=== PATIENT | male | born 1950 | race African-American/Black ===

== ENCOUNTER 2019-06-20 09:44 | Inpatient (IN) ==
[2019-06-20] MEDS ORDERED: NALOXONE 0.4 MG/ML VIAL ONE (09:52)
[2019-06-20] MEDS ORDERED: AMMONIA INHALANT 1 EACH AMP INH ONE (09:53)
[2019-06-20] MEDS ORDERED: THIAMINE 200 MG/2 ML VIAL IV STA (09:57)
[2019-06-20] MEDS ORDERED: NALOXONE 0.4 MG/ML VIAL IV STA (09:57)
[2019-06-20 10:25] LABS: Basophils % 0.3 % (0.0-0.8); Hematocrit 41.5 VOL% (42.0-52.0); Hemoglobin 12.6 GM/DL (14.0-18.0); Immature Granulocytes % 0.4 %; Immature Granulocytes Absolute 0.05 #; Lymphocytes # 0.7 10*3/uL (1.4-4.0); Lymphocytes % 5.8 % (21.2-54.2); Mean Corpuscular HGB Conc 30.4 GM/DL (32-36); Mean Corpuscular Volume 84.5 FL (87-102); Mean Platelet Volume 11.4 FL (9.6-12.0); Monocytes % 7.3 % (1.7-12.7); Neutrophils % 86.2 % (38.7-73.9); Platelet Count 263 T/CUMM (130-400); Red Blood Count 4.91 MC/CUMM (3.8-5.5); Red Cell Distribution Width 20.8 % (9.3-17.3); White Blood Count 11.9 T/CUMM (4-12)
[2019-06-20 10:32] LABS: INR 0.9; PT Patient Result 10.2 SECS
[2019-06-20 10:32] LABS: Apearance,Urine CLEAR (Clear); Bacteria,Urine Occasional /HPF (Few); Bilirubin,Urine Negative (Negative); Blood, Urine Negative (Negative); Calcium Oxalate Crystals,Urine Occasional /HPF (Few); Glucose,Urine (UA) Negative (Negative); Hyaline Casts,Urine 13 /LPF (0-3); Ketones,Urine 5 mg/dL (Negative); Nitrite,Urine Negative (Negative); Protein,Urine 100 MG/DL; RBC,Urine 1 /HPF (0-4); Urine Color Yellow (Yellow); Urine Specific Gravity 1.023 (1.001-1.035); Urine Urobilinogen < 2.0 EU/DL (0.2-1.0); WBC,Urine 2 /HPF (0-6)
[2019-06-20 10:32] LABS: ABG Base Excess -0.1 MMOL/L (-2.5-2.5); ABG HCO3 24.3 MMOL/L (20-26); ABG Oxygen Saturation 99.8 % (95-100); ABG PCO2 49.5 MM HG (35-48); ABG PH 7.335 (7.35-7.45); ABG TCO2 23.4 MMOL/L (23-27)
[2019-06-20 10:36] LABS: Barbiturates Screen,Urine Negative (Negative); Benzodiazepines Screen,Urine Negative (Negative); Cannabinoid Screen,Urine Negative (Negative); Opiate Screen,Urine Negative (Negative); Phencyclidine Screen,Urine Negative (Negative)
[2019-06-20 10:41] LABS: Alanine Aminotransferase 29 U/L (16-61); Albumin 4.5 G/DL (3.4-5.0); Alkaline Phosphatase 105 U/L (45-117); Aspartate Amino Transferase 22 U/L (0-37); Bilirubin,Total < 0.39 MG/DL (0.2-1.0); Blood Urea Nitrogen 26 MG/DL (7-18); Calcium 9.9 MG/DL (8.5-10.1); Glucose 100 MG/DL (74-106); Osmolality,Calculated 300.1 MOS/KG (273-304); Total Protein 7.7 G/DL (6.4-8.3)
[2019-06-20 10:50] LABS: Partial Thromboplastin Time < 21.0 SECS (0-40)
[2019-06-20] MEDS ORDERED: ETOMIDATE 20 MG/10 ML VIAL IV ONE (12:17)
[2019-06-20] MEDS ORDERED: ROCURONIUM 100 MG/10 ML VIAL IV ONE (12:18)
[2019-06-20] MEDS ORDERED: ALBUTEROL 2.5 MG/3 ML NEB RESP TX PRN (12:28)
[2019-06-20 12:58] LABS: ABG Base Excess 0.1 MMOL/L (-2.5-2.5); ABG HCO3 24.5 MMOL/L (20-26); ABG Oxygen Saturation 98.1 % (95-100); ABG PCO2 34.6 MM HG (35-48); ABG PH 7.443 (7.35-7.45); ABG PO2 98.3 MM HG (80-95); ABG TCO2 20.7 MMOL/L (23-27); Allen Test Positive; Pt O2 Delivery Device Ventilator
[2019-06-20] MEDS ORDERED: PNEUMOCOCCAL VACCINE (13 VALENT) 0.5 ML SYRINGE IM ONE (13:15)
[2019-06-20] MEDS ORDERED: LORazepam 2 MG/1 ML VIAL IV ONE (13:27)
[2019-06-20] MEDS ORDERED: DILTIAZEM 50 MG/10 ML VIAL IV ONE (13:31)
[2019-06-20] MEDS ORDERED: DILTIAZEM 25 MG/5 ML VIAL IV ONE (13:33)
[2019-06-20] MEDS ORDERED: PHENYTOIN INJ 1,000 MG in SODIUM CHLORIDE 0.9% 100 ML IV ONE (13:41)
[2019-06-20] MEDS: ALBUTEROL/IPRATROPIUM 3 ML NEB RESP TX SCH ×2 (13:45→19:17)
[2019-06-20] MEDS: SODIUM CHLORIDE 0.45% 1,000 ML IV SCH ×2 (13:58→20:41)
[2019-06-20] MEDS ORDERED: PHENYTOIN 100 MG/4 ML UDCUP PO SCH (14:00)
[2019-06-20 15:53] LABS: Thyroid Stimulating Hormone 1.2 uIU/ml (0.358-3.74)
[2019-06-20] MEDS: ENOXAPARIN 40 MG/0.4 ML SYRINGE SUBCUT SCH (16:36)
[2019-06-20] MEDS: PANTOPRAZOLE 40 MG VIAL IV SCH (16:36)
[2019-06-20] MEDS: LORazepam 2 MG/1 ML VIAL IV PRN (18:12)
[2019-06-20] MEDS: PROPOFOL 1,000 MG/100 ML BOTTLE IV SCH ×2 (18:19→22:50)
[2019-06-21] MEDS: ALBUTEROL/IPRATROPIUM 3 ML NEB RESP TX SCH ×4 (00:40→20:14)
[2019-06-21 01:16] LABS: Basophils % 0.3 % (0.0-0.8); Hematocrit 40.5 VOL% (42.0-52.0); Immature Granulocytes % 1.4 %; Immature Granulocytes Absolute 0.16 #; Lymphocytes # 0.9 10*3/uL (1.4-4.0); Lymphocytes % 7.4 % (21.2-54.2); Mean Corpuscular HGB Conc 29.6 GM/DL (32-36); Mean Corpuscular Volume 87.5 FL (87-102); Mean Platelet Volume 11.3 FL (9.6-12.0); Monocytes % 7.9 % (1.7-12.7); Platelet Count 242 T/CUMM (130-400); Red Blood Count 4.63 MC/CUMM (3.8-5.5); Red Cell Distribution Width 20.7 % (9.3-17.3); White Blood Count 11.5 T/CUMM (4-12)
[2019-06-21 01:47] LABS: Albumin 3.5 G/DL (3.4-5.0); Bilirubin,Total 0.6 MG/DL (0.2-1.0); Calcium 8.9 MG/DL (8.5-10.1); Osmolality,Calculated 298.4 MOS/KG (273-304); Risk Ratio 1.94; Total Protein 6.5 G/DL (6.4-8.3); VLDL CHOLESTEROL 12.6 MG/DL
[2019-06-21] MEDS: SODIUM CHLORIDE 0.45% 1,000 ML IV SCH ×4 (03:36→21:08)
[2019-06-21] MEDS: PROPOFOL 1,000 MG/100 ML BOTTLE IV SCH ×6 (03:36→21:29)
[2019-06-21 04:30] LABS: ABG Base Excess 1.4 MMOL/L (-2.5-2.5); ABG HCO3 25.7 MMOL/L (20-26); ABG Oxygen Saturation 98.5 % (95-100); ABG PCO2 37.3 MM HG (35-48); ABG TCO2 22.5 MMOL/L (23-27); Allen Test Positive; Pt O2 Delivery Device Ventilator
[2019-06-21] MEDS ORDERED: GLUCAGON 1 MG VIAL IM PRN (11:37)
[2019-06-21] MEDS ORDERED: DEXTROSE 50% 25 GM/50 ML VIAL IV PRN (11:37)
[2019-06-21] MEDS: ENOXAPARIN 40 MG/0.4 ML SYRINGE SUBCUT SCH (13:50)
[2019-06-21] MEDS: PANTOPRAZOLE 40 MG VIAL IV SCH (13:50)
[2019-06-22] MEDS: PROPOFOL 1,000 MG/100 ML BOTTLE IV SCH ×6 (01:18→20:39)
[2019-06-22] MEDS: ALBUTEROL/IPRATROPIUM 3 ML NEB RESP TX SCH ×4 (02:04→19:06)
[2019-06-22 03:59] LABS: ABG Base Excess 1.9 MMOL/L (-2.5-2.5); ABG HCO3 26.1 MMOL/L (20-26); ABG Oxygen Saturation 98.9 % (95-100); ABG PCO2 42.6 MM HG (35-48); ABG PH 7.407 (7.35-7.45); ABG TCO2 24.1 MMOL/L (23-27); Allen Test Positive; Pt O2 Delivery Device Ventilator
[2019-06-22 06:07] LABS: Albumin 2.7 G/DL (3.4-5.0); Bilirubin,Total 0.8 MG/DL (0.2-1.0); Calcium 8.6 MG/DL (8.5-10.1); Osmolality,Calculated 289.7 MOS/KG (273-304); Total Protein 6.1 G/DL (6.4-8.3)
[2019-06-22 06:16] LABS: Basophils % 0.3 % (0.0-0.8); Eosinophils # 0.1 10*3/uL (0.0-0.87); Eosinophils % 0.8 % (0.00-10.9); Hematocrit 35.4 VOL% (42.0-52.0); Hemoglobin 10.3 GM/DL (14.0-18.0); Immature Granulocytes % 0.6 %; Immature Granulocytes Absolute 0.06 #; Lymphocytes # 1.5 10*3/uL (1.4-4.0); Lymphocytes % 14.5 % (21.2-54.2); Mean Corpuscular HGB Conc 29.1 GM/DL (32-36); Mean Corpuscular Volume 89.2 FL (87-102); Monocytes % 9.8 % (1.7-12.7); Platelet Count 152 T/CUMM (130-400); Red Blood Count 3.97 MC/CUMM (3.8-5.5); Red Cell Distribution Width 20.9 % (9.3-17.3)
[2019-06-22] MEDS: SODIUM CHLORIDE 0.45% 1,000 ML IV SCH ×2 (07:31→13:44)
[2019-06-22] MEDS: ENOXAPARIN 40 MG/0.4 ML SYRINGE SUBCUT SCH (13:15)
[2019-06-22] MEDS: PANTOPRAZOLE 40 MG VIAL IV SCH (13:15)
[2019-06-22] MEDS: ACETAMINOPHEN 325 MG TABLET PO PRN (15:33)
[2019-06-23] MEDS: ALBUTEROL/IPRATROPIUM 3 ML NEB RESP TX SCH ×4 (00:49→19:24)
[2019-06-23] MEDS: PROPOFOL 1,000 MG/100 ML BOTTLE IV SCH ×5 (01:05→22:48)
[2019-06-23 02:58] LABS: ABG HCO3 27.1 MMOL/L (20-26); ABG Oxygen Saturation 98.7 % (95-100); ABG PCO2 43.9 MM HG (35-48); ABG PH 7.413 (7.35-7.45); ABG TCO2 25.2 MMOL/L (23-27); Allen Test Positive; Pt O2 Delivery Device Ventilator
[2019-06-23 05:38] LABS: Basophils % 0.3 % (0.0-0.8); Eosinophils # 0.1 10*3/uL (0.0-0.87); Hematocrit 34.1 VOL% (42.0-52.0); Hemoglobin 10.3 GM/DL (14.0-18.0); Immature Granulocytes % 0.4 %; Immature Granulocytes Absolute 0.05 #; Lymphocytes % 8.7 % (21.2-54.2); Mean Corpuscular HGB Conc 30.2 GM/DL (32-36); Mean Corpuscular Volume 84.4 FL (87-102); Mean Platelet Volume 11.4 FL (9.6-12.0); Monocytes % 9.3 % (1.7-12.7); Neutrophils % 80.3 % (38.7-73.9); Platelet Count 206 T/CUMM (130-400); Red Blood Count 4.04 MC/CUMM (3.8-5.5); Red Cell Distribution Width 20.6 % (9.3-17.3); White Blood Count 11.2 T/CUMM (4-12)
[2019-06-23 06:14] LABS: Albumin 2.7 G/DL (3.4-5.0); Bilirubin,Total 1.5 MG/DL (0.2-1.0); Calcium 8.8 MG/DL (8.5-10.1); Total Protein 6.1 G/DL (6.4-8.3)
[2019-06-23] MEDS: SODIUM CHLORIDE 0.45% 1,000 ML IV SCH ×2 (09:08→19:08)
[2019-06-23] MEDS: POTASSIUM CHLORIDE 20 MEQ/15 ML UDCUP PER TUBE SCH ×4 (09:08→22:00)
[2019-06-23] MEDS: DEXMEDETOMIDINE 200 MCG in SODIUM CHLORIDE 0.9% 48 ML IV PRN ×2 (09:20→14:46)
[2019-06-23] MEDS ORDERED: ENALAPRIL 2.5 MG/2 ML VIAL IV PRN (13:15)
[2019-06-23] MEDS ORDERED: cloNIDine 0.3 MG/24 HR PATCH TRANSDERM SCH (13:30)
[2019-06-23] MEDS: ENOXAPARIN 40 MG/0.4 ML SYRINGE SUBCUT SCH (13:31)
[2019-06-23] MEDS: PANTOPRAZOLE 40 MG VIAL IV SCH (13:32)
[2019-06-23] MEDS: VERAPAMIL 80 MG TABLET PER TUBE SCH ×2 (13:32→21:35)
[2019-06-23] MEDS: DEXMEDETOMIDINE 400 MCG in SODIUM CHLORIDE 0.9% 96 ML IV PRN (17:25)
[2019-06-23] MEDS: traZODone 50 MG TABLET PER TUBE SCH (21:35)
[2019-06-24] MEDS: ALBUTEROL/IPRATROPIUM 3 ML NEB RESP TX SCH ×4 (00:44→20:42)
[2019-06-24] MEDS: DEXMEDETOMIDINE 400 MCG in SODIUM CHLORIDE 0.9% 96 ML IV PRN (02:15)
[2019-06-24] MEDS: VERAPAMIL 80 MG TABLET PER TUBE SCH ×3 (02:30→12:30)
[2019-06-24 03:40] LABS: ABG Base Excess 0.1 MMOL/L (-2.5-2.5); ABG HCO3 24.9 MMOL/L (20-26); ABG Oxygen Saturation 97.7 % (95-100); ABG PCO2 40.7 MM HG (35-48); ABG PH 7.404 (7.35-7.45); ABG PO2 114.9 MM HG (80-95); ABG TCO2 26.1 MMOL/L (23-27); Allen Test Positive; Pt O2 Delivery Device Ventilator
[2019-06-24] MEDS: SODIUM CHLORIDE 0.45% 1,000 ML IV SCH ×2 (05:08→15:42)
[2019-06-24 06:26] LABS: Osmolality,Calculated 295.3 MOS/KG (273-304)
[2019-06-24] MEDS: PROPOFOL 1,000 MG/100 ML BOTTLE IV SCH (07:08)
[2019-06-24] MEDS ORDERED: methylPREDNISolone SOD SUC 40 MG/1 ML VIAL IV ONE (10:09)
[2019-06-24] MEDS ORDERED: RACEPINEPHRINE 0.5 ML NEB RESP TX ONE (10:10)
[2019-06-24] MEDS: QUEtiapine 25 MG TABLET PO SCH ×2 (12:30→21:50)
[2019-06-24] MEDS: BACLOFEN 20 MG TABLET PO SCH (12:30)
[2019-06-24] MEDS: ASPIRIN CHEW 81 MG TABLET PO SCH (12:30)
[2019-06-24] MEDS: PANTOPRAZOLE 40 MG VIAL IV SCH (13:24)
[2019-06-24] MEDS: PIPERACILLIN/TAZOBACTAM 3,375 MG in SODIUM CHLORIDE 0.9% 100 ML IV SCH ×2 (13:25→21:50)
[2019-06-24] MEDS: ENOXAPARIN 40 MG/0.4 ML SYRINGE SUBCUT SCH (13:25)
[2019-06-24] MEDS ORDERED: METOPROLOL TARTRATE 100 MG TABLET PER TUBE ONE (15:25)
[2019-06-24] MEDS ORDERED: traZODone 50 MG TABLET PER TUBE ONE (15:27)
[2019-06-24] MEDS: GABAPENTIN 600 MG TABLET PO SCH ×2 (15:35→21:50)
[2019-06-24] MEDS: BACLOFEN 10 MG TABLET PER TUBE SCH ×2 (16:19→21:50)
[2019-06-24] MEDS: METOPROLOL TARTRATE 50 MG TABLET PO SCH (17:39)
[2019-06-24] MEDS: traZODone 50 MG TABLET PER TUBE SCH (21:50)
[2019-06-25] MEDS: VERAPAMIL 80 MG TABLET PER TUBE SCH ×5 (00:56→21:09)
[2019-06-25] MEDS: METOPROLOL TARTRATE 50 MG TABLET PO SCH ×3 (00:59→13:06)
[2019-06-25] MEDS ORDERED: ALBUTEROL/IPRATROPIUM 3 ML NEB RESP TX SCH (01:00)
[2019-06-25] MEDS ORDERED: LEVALBUTEROL 0.63 MG/3 ML NEB RESP TX PRN (01:26)
[2019-06-25] MEDS: SODIUM CHLORIDE 0.45% 1,000 ML IV SCH ×2 (01:42→16:40)
[2019-06-25] MEDS: ALBUTEROL/IPRATROPIUM 3 ML NEB RESP TX SCH ×4 (01:52→19:22)
[2019-06-25 04:15] LABS: ABG Base Excess 2.4 MMOL/L (-2.5-2.5); ABG HCO3 26.5 MMOL/L (20-26); ABG PCO2 44.2 MM HG (35-48); ABG PH 7.403 (7.35-7.45); ABG PO2 90.4 MM HG (80-95); ABG TCO2 24.6 MMOL/L (23-27); Allen Test Positive
[2019-06-25] MEDS: PIPERACILLIN/TAZOBACTAM 3,375 MG in SODIUM CHLORIDE 0.9% 100 ML IV SCH ×3 (05:01→21:03)
[2019-06-25 06:13] LABS: Calcium 8.9 MG/DL (8.5-10.1); Osmolality,Calculated 291.6 MOS/KG (273-304)
[2019-06-25 06:35] LABS: Albumin 2.5 G/DL (3.4-5.0); Bilirubin,Direct 0.49 MG/DL (0.0-0.20); Bilirubin,Indirect 0.3 MG/DL (0.0-1.0); Bilirubin,Total 0.8 MG/DL (0.2-1.0); Total Protein 6.7 G/DL (6.4-8.3)
[2019-06-25] MEDS: BACLOFEN 20 MG TABLET PO SCH (09:13)
[2019-06-25] MEDS: ACETAMINOPHEN 325 MG TABLET PO PRN (09:14)
[2019-06-25] MEDS: ASPIRIN CHEW 81 MG TABLET PO SCH (09:15)
[2019-06-25] MEDS: GABAPENTIN 600 MG TABLET PO SCH ×3 (09:15→21:09)
[2019-06-25] MEDS: BACLOFEN 10 MG TABLET PER TUBE SCH ×2 (09:15→21:09)
[2019-06-25] MEDS: QUEtiapine 25 MG TABLET PO SCH ×2 (09:15→21:09)
[2019-06-25] MEDS: POTASSIUM CHLORIDE 20 MEQ/15 ML UDCUP PER TUBE SCH ×3 (13:30→17:42)
[2019-06-25] MEDS: ENOXAPARIN 40 MG/0.4 ML SYRINGE SUBCUT SCH (13:33)
[2019-06-25] MEDS: levETIRAcetam LIQUID 100 MG/ML 30 ML/BOTTLE PER TUBE SCH ×2 (14:57→21:11)
[2019-06-25] MEDS: traZODone 50 MG TABLET PER TUBE SCH (21:09)
[2019-06-25] MEDS: ONDANSETRON 4 MG/2 ML VIAL IV PRN (21:09)
[2019-06-25] MEDS: LORazepam 2 MG/1 ML VIAL IV PRN (23:06)
[2019-06-26] MEDS: METOPROLOL TARTRATE 50 MG TABLET PO SCH ×3 (00:11→21:33)
[2019-06-26] MEDS: ALBUTEROL/IPRATROPIUM 3 ML NEB RESP TX SCH ×4 (00:56→19:46)
[2019-06-26] MEDS: VERAPAMIL 80 MG TABLET PER TUBE SCH ×4 (02:52→21:32)
[2019-06-26 03:22] LABS: ABG Base Excess 1.4 MMOL/L (-2.5-2.5); ABG HCO3 25.6 MMOL/L (20-26); ABG Oxygen Saturation 96.4 % (95-100); ABG PCO2 45.1 MM HG (35-48); ABG PH 7.383 (7.35-7.45); ABG PO2 82.6 MM HG (80-95); ABG TCO2 24.2 MMOL/L (23-27); Allen Test Positive
[2019-06-26] MEDS: PIPERACILLIN/TAZOBACTAM 3,375 MG in SODIUM CHLORIDE 0.9% 100 ML IV SCH ×3 (04:11→21:29)
[2019-06-26] MEDS: levETIRAcetam LIQUID 100 MG/ML 30 ML/BOTTLE PER TUBE SCH ×3 (05:49→21:33)
[2019-06-26 06:10] LABS: Calcium 8.8 MG/DL (8.5-10.1); Osmolality,Calculated 293.4 MOS/KG (273-304)
[2019-06-26] MEDS: ASPIRIN CHEW 81 MG TABLET PO SCH (08:43)
[2019-06-26] MEDS: BACLOFEN 10 MG TABLET PER TUBE SCH ×2 (08:43→21:33)
[2019-06-26] MEDS: GABAPENTIN 600 MG TABLET PO SCH ×3 (08:43→21:32)
[2019-06-26] MEDS: BACLOFEN 20 MG TABLET PO SCH (08:43)
[2019-06-26] MEDS: QUEtiapine 25 MG TABLET PO SCH ×2 (08:44→21:32)
[2019-06-26] MEDS: LORazepam 2 MG/1 ML VIAL IV PRN (09:48)
[2019-06-26] MEDS ORDERED: HALOPERIDOL 5 MG/ML AMP IM ONE ×2 (10:07→18:11)
[2019-06-26 11:24] LABS: Apearance,Urine CLEAR (Clear); Bacteria,Urine Occasional /HPF (Few); Bilirubin,Urine Negative (Negative); Blood, Urine Moderate mg/dL (Negative); Glucose,Urine (UA) 50 mg/dL (Negative); Ketones,Urine Negative (Negative); Mucus,Urine Occasional /LPF (Occasional); Nitrite,Urine Negative (Negative); Protein,Urine 30 MG/DL; RBC,Urine 47 /HPF (0-4); Squamous Epithelial Cell,Urine Occasional /HPF (0-10); Urine Color Yellow (Yellow); Urine Specific Gravity 1.013 (1.001-1.035); WBC,Urine 2 /HPF (0-6)
[2019-06-26] MEDS: ENOXAPARIN 40 MG/0.4 ML SYRINGE SUBCUT SCH (12:33)
[2019-06-26] MEDS: SODIUM CHLORIDE 0.45% 1,000 ML IV SCH ×2 (14:02→21:28)
[2019-06-26] MEDS ORDERED: diphenhydrAMINE 50 MG/1 ML VIAL IM ONE (18:11)
[2019-06-26] MEDS: ACETAMINOPHEN 325 MG TABLET PO PRN (21:30)
[2019-06-26] MEDS: traZODone 50 MG TABLET PER TUBE SCH (21:31)
[2019-06-27] MEDS: ALBUTEROL/IPRATROPIUM 3 ML NEB RESP TX SCH ×4 (01:16→19:47)
[2019-06-27] MEDS: VERAPAMIL 80 MG TABLET PER TUBE SCH ×4 (05:31→21:35)
[2019-06-27] MEDS: PIPERACILLIN/TAZOBACTAM 3,375 MG in SODIUM CHLORIDE 0.9% 100 ML IV SCH ×3 (05:32→21:32)
[2019-06-27] MEDS: levETIRAcetam LIQUID 100 MG/ML 30 ML/BOTTLE PER TUBE SCH ×3 (05:32→21:34)
[2019-06-27 05:41] LABS: Basophils % 0.3 % (0.0-0.8); Eosinophils # 0.1 10*3/uL (0.0-0.87); Eosinophils % 1.2 % (0.00-10.9); Hematocrit 39.1 VOL% (42.0-52.0); Immature Granulocytes % 1.1 %; Lymphocytes # 1.8 10*3/uL (1.4-4.0); Lymphocytes % 19.4 % (21.2-54.2); Mean Corpuscular HGB Conc 30.7 GM/DL (32-36); Mean Corpuscular Volume 82.8 FL (87-102); Mean Platelet Volume 11.2 FL (9.6-12.0); Platelet Count 363 T/CUMM (130-400); Red Blood Count 4.72 MC/CUMM (3.8-5.5); Red Cell Distribution Width 18.6 % (9.3-17.3); White Blood Count 9.5 T/CUMM (4-12)
[2019-06-27 06:32] LABS: Bilirubin,Total 0.9 MG/DL (0.2-1.0); Osmolality,Calculated 286.8 MOS/KG (273-304); Total Protein 7.8 G/DL (6.4-8.3)
[2019-06-27] MEDS: ASPIRIN CHEW 81 MG TABLET PO SCH (08:15)
[2019-06-27] MEDS: GABAPENTIN 600 MG TABLET PO SCH ×2 (08:15→13:36)
[2019-06-27] MEDS: BACLOFEN 20 MG TABLET PO SCH (08:15)
[2019-06-27] MEDS: BACLOFEN 10 MG TABLET PER TUBE SCH ×2 (08:15→21:35)
[2019-06-27] MEDS: METOPROLOL TARTRATE 50 MG TABLET PO SCH ×2 (08:15→21:35)
[2019-06-27] MEDS: QUEtiapine 25 MG TABLET PO SCH ×2 (08:15→21:35)
[2019-06-27] MEDS: LORazepam 2 MG/1 ML VIAL IV PRN ×2 (11:44→21:50)
[2019-06-27] MEDS ORDERED: chlordiazePOXIDE 25 MG CAPSULE PO ONE (12:00)
[2019-06-27] MEDS: ENOXAPARIN 40 MG/0.4 ML SYRINGE SUBCUT SCH (12:19)
[2019-06-27] MEDS: GABAPENTIN 300 MG CAPSULE PO SCH ×2 (14:05→21:35)
[2019-06-27] MEDS: chlordiazePOXIDE 10 MG CAPSULE PO PRN (21:35)
[2019-06-27] MEDS: traZODone 50 MG TABLET PER TUBE SCH (21:35)
[2019-06-28] MEDS: ALBUTEROL/IPRATROPIUM 3 ML NEB RESP TX SCH ×4 (01:07→18:40)
[2019-06-28] MEDS: PIPERACILLIN/TAZOBACTAM 3,375 MG in SODIUM CHLORIDE 0.9% 100 ML IV SCH ×3 (03:48→21:02)
[2019-06-28] MEDS: chlordiazePOXIDE 10 MG CAPSULE PO PRN (03:48)
[2019-06-28] MEDS: VERAPAMIL 80 MG TABLET PER TUBE SCH ×4 (03:48→20:21)
[2019-06-28] MEDS: levETIRAcetam LIQUID 100 MG/ML 30 ML/BOTTLE PER TUBE SCH ×3 (06:10→21:04)
[2019-06-28] MEDS: SODIUM CHLORIDE 0.45% 1,000 ML IV SCH ×2 (09:06→12:20)
[2019-06-28] MEDS: GABAPENTIN 300 MG CAPSULE PO SCH ×3 (09:06→20:21)
[2019-06-28] MEDS: BACLOFEN 20 MG TABLET PO SCH (09:06)
[2019-06-28] MEDS: METOPROLOL TARTRATE 50 MG TABLET PO SCH ×2 (09:07→20:21)
[2019-06-28] MEDS: ASPIRIN CHEW 81 MG TABLET PO SCH (09:07)
[2019-06-28] MEDS: BACLOFEN 10 MG TABLET PER TUBE SCH ×2 (09:07→20:21)
[2019-06-28] MEDS: QUEtiapine 25 MG TABLET PO SCH ×2 (09:07→20:21)
[2019-06-28] MEDS: ENOXAPARIN 40 MG/0.4 ML SYRINGE SUBCUT SCH (12:36)
[2019-06-28] MEDS: chlordiazePOXIDE 10 MG CAPSULE PO SCH ×2 (14:22→20:21)
[2019-06-28] MEDS: POTASSIUM CHLORIDE 20 MEQ TABLET PO PRN ×2 (14:22→16:16)
[2019-06-28] MEDS: traZODone 50 MG TABLET PER TUBE SCH (20:21)
[2019-06-28] MEDS: LORazepam 2 MG/1 ML VIAL IV PRN (22:31)
[2019-06-29] MEDS: ALBUTEROL/IPRATROPIUM 3 ML NEB RESP TX SCH ×4 (01:18→19:34)
[2019-06-29] MEDS: VERAPAMIL 80 MG TABLET PER TUBE SCH ×5 (01:51→21:40)
[2019-06-29] MEDS: PIPERACILLIN/TAZOBACTAM 3,375 MG in SODIUM CHLORIDE 0.9% 100 ML IV SCH (04:25)
[2019-06-29] MEDS: levETIRAcetam LIQUID 100 MG/ML 30 ML/BOTTLE PER TUBE SCH ×4 (05:21→21:40)
[2019-06-29 06:13] LABS: Albumin 2.7 G/DL (3.4-5.0); Bilirubin,Total 0.6 MG/DL (0.2-1.0); Osmolality,Calculated 288.7 MOS/KG (273-304); Total Protein 7.1 G/DL (6.4-8.3)
[2019-06-29 08:21] LABS: Hematocrit 39.3 VOL% (42.0-52.0); Hemoglobin 11.8 GM/DL (14.0-18.0); Red Blood Count 4.64 MC/CUMM (3.8-5.5); White Blood Count 8.6 T/CUMM (4-12)
[2019-06-29 08:22] LABS: Basophils % 0.3 % (0.0-0.8); Eosinophils # 0.2 10*3/uL (0.0-0.87); Eosinophils % 2.2 % (0.00-10.9); Immature Granulocytes % 0.6 %; Immature Granulocytes Absolute 0.05 #; Lymphocytes # 1.8 10*3/uL (1.4-4.0); Lymphocytes % 21.1 % (21.2-54.2); Mean Corpuscular Volume 84.7 FL (87-102); Mean Platelet Volume 10.5 FL (9.6-12.0); Monocytes % 10.5 % (1.7-12.7); Neutrophils % 65.3 % (38.7-73.9); Platelet Count 429 T/CUMM (130-400); Red Cell Distribution Width 19.1 % (9.3-17.3)
[2019-06-29] MEDS ORDERED: BISACODYL 10 MG SUPP RECTAL ONE (09:38)
[2019-06-29] MEDS: QUEtiapine 25 MG TABLET PO SCH ×3 (09:57→21:40)
[2019-06-29] MEDS: BACLOFEN 20 MG TABLET PO SCH (09:57)
[2019-06-29] MEDS: BACLOFEN 10 MG TABLET PER TUBE SCH ×3 (09:57→21:39)
[2019-06-29] MEDS: METOPROLOL TARTRATE 50 MG TABLET PO SCH ×3 (09:57→21:40)
[2019-06-29] MEDS: GABAPENTIN 300 MG CAPSULE PO SCH ×4 (09:58→21:40)
[2019-06-29] MEDS: chlordiazePOXIDE 10 MG CAPSULE PO SCH ×4 (09:58→21:40)
[2019-06-29] MEDS: ASPIRIN CHEW 81 MG TABLET PO SCH (09:58)
[2019-06-29] MEDS: SODIUM CHLORIDE 0.45% 1,000 ML IV SCH ×4 (10:06→20:06)
[2019-06-29] MEDS: LORazepam 2 MG/1 ML VIAL IV PRN (11:53)
[2019-06-29] MEDS: ENOXAPARIN 40 MG/0.4 ML SYRINGE SUBCUT SCH (13:53)
[2019-06-29] MEDS ORDERED: MAGNESIUM CITRATE 300 ML BOTTLE PO ONE (15:44)
[2019-06-29] MEDS: traZODone 50 MG TABLET PER TUBE SCH ×2 (21:38→21:40)
[2019-06-30] MEDS: ALBUTEROL/IPRATROPIUM 3 ML NEB RESP TX SCH ×4 (00:20→20:19)
[2019-06-30] MEDS: VERAPAMIL 80 MG TABLET PER TUBE SCH ×4 (01:30→21:49)
[2019-06-30] MEDS: LORazepam 2 MG/1 ML VIAL IV PRN ×2 (04:04→08:30)
[2019-06-30 05:27] LABS: Basophils # 0.1 10*3/uL (0.0-0.2); Basophils % 0.3 % (0.0-0.8); Eosinophils # 0.1 10*3/uL (0.0-0.87); Eosinophils % 0.3 % (0.00-10.9); Immature Granulocytes % 0.7 %; Immature Granulocytes Absolute 0.12 #; Lymphocytes % 11.4 % (21.2-54.2); Mean Corpuscular Volume 84.2 FL (87-102); Mean Platelet Volume 10.3 FL (9.6-12.0); Monocytes % 7.9 % (1.7-12.7); Neutrophils % 79.4 % (38.7-73.9); Platelet Count 494 T/CUMM (130-400); Red Blood Count 4.75 MC/CUMM (3.8-5.5); Red Cell Distribution Width 19.2 % (9.3-17.3); White Blood Count 17.3 T/CUMM (4-12)
[2019-06-30 06:03] LABS: Albumin 2.7 G/DL (3.4-5.0); Bilirubin,Total 0.7 MG/DL (0.2-1.0); Calcium 8.8 MG/DL (8.5-10.1); Osmolality,Calculated 283.1 MOS/KG (273-304); Total Protein 7.2 G/DL (6.4-8.3)
[2019-06-30] MEDS: SODIUM CHLORIDE 0.45% 1,000 ML IV SCH (06:15)
[2019-06-30] MEDS: levETIRAcetam LIQUID 100 MG/ML 30 ML/BOTTLE PER TUBE SCH ×4 (06:16→21:58)
[2019-06-30] MEDS: METOPROLOL TARTRATE 50 MG TABLET PO SCH ×2 (10:19→21:49)
[2019-06-30] MEDS: QUEtiapine 25 MG TABLET PO SCH ×2 (10:19→21:49)
[2019-06-30] MEDS: GABAPENTIN 300 MG CAPSULE PO SCH ×3 (10:19→21:49)
[2019-06-30] MEDS: BACLOFEN 20 MG TABLET PO SCH (10:19)
[2019-06-30] MEDS: ASPIRIN CHEW 81 MG TABLET PO SCH (10:19)
[2019-06-30] MEDS: chlordiazePOXIDE 10 MG CAPSULE PO SCH ×3 (10:19→21:50)
[2019-06-30] MEDS: BACLOFEN 10 MG TABLET PER TUBE SCH ×2 (10:20→21:50)
[2019-06-30] MEDS: ENOXAPARIN 40 MG/0.4 ML SYRINGE SUBCUT SCH (14:38)
[2019-06-30] MEDS: traZODone 50 MG TABLET PER TUBE SCH (21:48)
[2019-07-01] MEDS: ALBUTEROL/IPRATROPIUM 3 ML NEB RESP TX SCH ×4 (01:43→19:12)
[2019-07-01] MEDS: VERAPAMIL 80 MG TABLET PER TUBE SCH ×4 (05:32→21:34)
[2019-07-01 06:09] LABS: Albumin 2.5 G/DL (3.4-5.0); Bilirubin,Total 0.6 MG/DL (0.2-1.0); Calcium 8.8 MG/DL (8.5-10.1); Osmolality,Calculated 277.4 MOS/KG (273-304); Total Protein 6.7 G/DL (6.4-8.3)
[2019-07-01 07:25] LABS: Basophils # 0.1 10*3/uL (0.0-0.2); Basophils % 0.3 % (0.0-0.8); Eosinophils # 0.1 10*3/uL (0.0-0.87); Eosinophils % 0.5 % (0.00-10.9); Hematocrit 38.6 VOL% (42.0-52.0); Hemoglobin 11.7 GM/DL (14.0-18.0); Immature Granulocytes % 0.6 %; Immature Granulocytes Absolute 0.11 #; Lymphocytes # 1.8 10*3/uL (1.4-4.0); Lymphocytes % 10.6 % (21.2-54.2); Mean Corpuscular HGB Conc 30.3 GM/DL (32-36); Mean Corpuscular Volume 83.9 FL (87-102); Mean Platelet Volume 10.2 FL (9.6-12.0); Monocytes % 5.6 % (1.7-12.7); Neutrophils % 82.4 % (38.7-73.9); Platelet Count 496 T/CUMM (130-400); White Blood Count 17.1 T/CUMM (4-12)
[2019-07-01] MEDS: GABAPENTIN 300 MG CAPSULE PO SCH ×3 (09:19→21:34)
[2019-07-01] MEDS: QUEtiapine 25 MG TABLET PO SCH ×2 (09:19→21:34)
[2019-07-01] MEDS: METOPROLOL TARTRATE 50 MG TABLET PO SCH ×2 (09:19→21:34)
[2019-07-01] MEDS: levETIRAcetam LIQUID 100 MG/ML 30 ML/BOTTLE PER TUBE SCH ×3 (09:19→21:35)
[2019-07-01] MEDS: BACLOFEN 20 MG TABLET PO SCH (09:19)
[2019-07-01] MEDS: chlordiazePOXIDE 10 MG CAPSULE PO SCH ×3 (09:20→21:34)
[2019-07-01] MEDS: BACLOFEN 10 MG TABLET PER TUBE SCH ×2 (09:20→21:34)
[2019-07-01] MEDS: ASPIRIN CHEW 81 MG TABLET PO SCH (09:20)
[2019-07-01] MEDS: LORazepam 2 MG/1 ML VIAL IV PRN (11:23)
[2019-07-01] MEDS: ENOXAPARIN 40 MG/0.4 ML SYRINGE SUBCUT SCH (14:28)
[2019-07-01] MEDS: SODIUM CHLORIDE 0.45% 1,000 ML IV SCH ×3 (14:59→17:31)
[2019-07-01] MEDS: traZODone 50 MG TABLET PER TUBE SCH (21:34)
[2019-07-02] MEDS: ALBUTEROL/IPRATROPIUM 3 ML NEB RESP TX SCH ×5 (01:05→23:54)
[2019-07-02] MEDS: VERAPAMIL 80 MG TABLET PER TUBE SCH ×4 (02:13→21:39)
[2019-07-02] MEDS: SODIUM CHLORIDE 0.45% 1,000 ML IV SCH ×3 (03:30→23:45)
[2019-07-02] MEDS: levETIRAcetam LIQUID 100 MG/ML 30 ML/BOTTLE PER TUBE SCH ×3 (06:31→21:40)
[2019-07-02] MEDS: QUEtiapine 25 MG TABLET PO SCH ×2 (08:59→21:40)
[2019-07-02] MEDS: GABAPENTIN 300 MG CAPSULE PO SCH ×3 (08:59→21:40)
[2019-07-02] MEDS: ASPIRIN CHEW 81 MG TABLET PO SCH (08:59)
[2019-07-02] MEDS: BACLOFEN 10 MG TABLET PER TUBE SCH ×2 (08:59→21:40)
[2019-07-02] MEDS: METOPROLOL TARTRATE 50 MG TABLET PO SCH ×2 (08:59→21:40)
[2019-07-02] MEDS: chlordiazePOXIDE 10 MG CAPSULE PO SCH ×3 (08:59→21:39)
[2019-07-02] MEDS: LORazepam 2 MG/1 ML VIAL IV PRN (08:59)
[2019-07-02] MEDS: BACLOFEN 20 MG TABLET PO SCH (08:59)
[2019-07-02] MEDS: ENOXAPARIN 40 MG/0.4 ML SYRINGE SUBCUT SCH (14:46)
[2019-07-02] MEDS ORDERED: TUBERCULIN SKIN TEST 0.1 ML SYRINGE INTRADERM ONE (15:06)
[2019-07-02] MEDS: traZODone 50 MG TABLET PER TUBE SCH (21:39)
[2019-07-03] MEDS: VERAPAMIL 80 MG TABLET PER TUBE SCH ×4 (01:26→21:02)
[2019-07-03] MEDS: LORazepam 2 MG/1 ML VIAL IV PRN (01:59)
[2019-07-03] MEDS: levETIRAcetam LIQUID 100 MG/ML 30 ML/BOTTLE PER TUBE SCH ×3 (05:56→21:03)
[2019-07-03] MEDS: ALBUTEROL/IPRATROPIUM 3 ML NEB RESP TX SCH ×3 (07:53→19:50)
[2019-07-03] MEDS: chlordiazePOXIDE 10 MG CAPSULE PO SCH ×3 (09:00→21:02)
[2019-07-03] MEDS: BACLOFEN 20 MG TABLET PO SCH (09:00)
[2019-07-03] MEDS: QUEtiapine 25 MG TABLET PO SCH ×2 (09:00→21:03)
[2019-07-03] MEDS: GABAPENTIN 300 MG CAPSULE PO SCH ×3 (09:00→21:03)
[2019-07-03] MEDS: ASPIRIN CHEW 81 MG TABLET PO SCH (09:00)
[2019-07-03] MEDS: METOPROLOL TARTRATE 50 MG TABLET PO SCH ×2 (09:00→21:03)
[2019-07-03] MEDS: BACLOFEN 10 MG TABLET PER TUBE SCH ×2 (09:01→21:03)
[2019-07-03] MEDS: ONDANSETRON 4 MG/2 ML VIAL IV PRN (09:13)
[2019-07-03] MEDS: ENOXAPARIN 40 MG/0.4 ML SYRINGE SUBCUT SCH (14:00)
[2019-07-03] MEDS: SODIUM CHLORIDE 0.45% 1,000 ML IV SCH (14:13)
[2019-07-03 19:21] LABS: Basophils % 0.4 % (0.0-0.8); Eosinophils # 0.1 10*3/uL (0.0-0.87); Eosinophils % 1.5 % (0.00-10.9); Hematocrit 37.8 VOL% (42.0-52.0); Hemoglobin 11.3 GM/DL (14.0-18.0); Immature Granulocytes % 0.4 %; Immature Granulocytes Absolute 0.03 #; Lymphocytes # 1.4 10*3/uL (1.4-4.0); Lymphocytes % 18.2 % (21.2-54.2); Mean Corpuscular HGB Conc 29.9 GM/DL (32-36); Mean Corpuscular Volume 87.1 FL (87-102); Mean Platelet Volume 11.7 FL (9.6-12.0); Monocytes % 7.6 % (1.7-12.7); Neutrophils % 71.9 % (38.7-73.9); Platelet Count 398 T/CUMM (130-400); Red Blood Count 4.34 MC/CUMM (3.8-5.5); Red Cell Distribution Width 18.3 % (9.3-17.3); White Blood Count 7.9 T/CUMM (4-12)
[2019-07-03 19:36] LABS: ABG Base Excess 1.6 MMOL/L (-2.5-2.5); ABG HCO3 25.9 MMOL/L (20-26); ABG Oxygen Saturation 98.5 % (95-100); ABG PCO2 47.4 MM HG (35-48); ABG PH 7.371 (7.35-7.45); ABG TCO2 24.7 MMOL/L (23-27); Allen Test Positive
[2019-07-03 20:35] LABS: Calcium 8.6 MG/DL (8.5-10.1); Osmolality,Calculated 285.7 MOS/KG (273-304)
[2019-07-03] MEDS: traZODone 50 MG TABLET PER TUBE SCH (21:02)
[2019-07-04] MEDS: SODIUM CHLORIDE 0.45% 1,000 ML IV SCH ×3 (00:47→21:59)
[2019-07-04] MEDS: VERAPAMIL 80 MG TABLET PER TUBE SCH ×4 (01:35→21:59)
[2019-07-04] MEDS: ALBUTEROL/IPRATROPIUM 3 ML NEB RESP TX SCH ×4 (01:37→19:45)
[2019-07-04] MEDS: levETIRAcetam LIQUID 100 MG/ML 30 ML/BOTTLE PER TUBE SCH ×3 (06:28→21:59)
[2019-07-04] MEDS: LORazepam 2 MG/1 ML VIAL IV PRN ×2 (06:49→22:00)
[2019-07-04] MEDS ORDERED: chlordiazePOXIDE 10 MG CAPSULE PO PRN (08:10)
[2019-07-04] MEDS: LACTULOSE 20 GM/30 ML UDCUP PO SCH ×2 (08:50→21:59)
[2019-07-04] MEDS: GABAPENTIN 300 MG CAPSULE PO SCH ×3 (08:51→21:59)
[2019-07-04] MEDS: BACLOFEN 20 MG TABLET PO SCH (08:51)
[2019-07-04] MEDS: QUEtiapine 25 MG TABLET PO SCH ×2 (08:51→21:59)
[2019-07-04] MEDS: ASPIRIN CHEW 81 MG TABLET PO SCH (08:52)
[2019-07-04] MEDS: METOPROLOL TARTRATE 50 MG TABLET PO SCH ×2 (08:52→21:59)
[2019-07-04] MEDS: ENOXAPARIN 40 MG/0.4 ML SYRINGE SUBCUT SCH (14:13)
[2019-07-04] MEDS: chlordiazePOXIDE 10 MG CAPSULE PO SCH ×2 (14:51→21:59)
[2019-07-04] MEDS: traZODone 50 MG TABLET PER TUBE SCH (21:58)
[2019-07-05] MEDS: ALBUTEROL/IPRATROPIUM 3 ML NEB RESP TX SCH ×4 (00:25→19:41)
[2019-07-05] MEDS: VERAPAMIL 80 MG TABLET PER TUBE SCH ×4 (01:03→19:41)
[2019-07-05] MEDS: levETIRAcetam LIQUID 100 MG/ML 30 ML/BOTTLE PER TUBE SCH (05:23)
[2019-07-05] MEDS: LACTULOSE 20 GM/30 ML UDCUP PO SCH (10:00)
[2019-07-05] MEDS: METOPROLOL TARTRATE 50 MG TABLET PO SCH (10:01)
[2019-07-05] MEDS: GABAPENTIN 300 MG CAPSULE PO SCH ×2 (10:01→15:50)
[2019-07-05] MEDS: BACLOFEN 20 MG TABLET PO SCH (10:01)
[2019-07-05] MEDS: QUEtiapine 25 MG TABLET PO SCH (10:02)
[2019-07-05] MEDS: chlordiazePOXIDE 10 MG CAPSULE PO SCH ×2 (10:02→15:50)
[2019-07-05] MEDS: ASPIRIN CHEW 81 MG TABLET PO SCH (10:02)
[2019-07-05] MEDS: SODIUM CHLORIDE 0.45% 1,000 ML IV SCH (10:03)
[2019-07-05] MEDS: ENOXAPARIN 40 MG/0.4 ML SYRINGE SUBCUT SCH (13:26)
[2019-07-05] MEDS: levETIRAcetam 500 MG TABLET PO SCH (15:50)
[2019-07-05 18:13] LABS: Vitamin B12 483 PG/ML (211-911)
[2019-07-05 18:45] LABS: Hepatitis B Core IgM Quant 0.06 Index; Hepatitis B Surface Ag Quant < 0.10 Index; Hepatitis B Surface Ag Result Negative (Negative); Hepatitis C Virus Ab Quant < 0.02 Index; Hepatitis C Virus Ab Result Negative (Negative)
[2019-07-05] MEDS: PIPERACILLIN/TAZOBACTAM 3,375 MG in SODIUM CHLORIDE 0.9% 100 ML IV SCH (18:53)
[2019-07-06] MEDS: ALBUTEROL/IPRATROPIUM 3 ML NEB RESP TX SCH ×4 (00:43→20:07)
[2019-07-06] MEDS: traZODone 50 MG TABLET PER TUBE SCH ×3 (00:47→23:19)
[2019-07-06] MEDS: LACTULOSE 20 GM/30 ML UDCUP PO SCH ×4 (00:47→23:20)
[2019-07-06] MEDS: VERAPAMIL 80 MG TABLET PER TUBE SCH ×5 (00:47→23:26)
[2019-07-06] MEDS: levETIRAcetam 500 MG TABLET PO SCH ×6 (00:47→23:20)
[2019-07-06] MEDS: QUEtiapine 25 MG TABLET PO SCH ×4 (00:48→23:26)
[2019-07-06] MEDS: GABAPENTIN 300 MG CAPSULE PO SCH ×6 (00:48→23:19)
[2019-07-06] MEDS: METOPROLOL TARTRATE 50 MG TABLET PO SCH ×3 (00:48→23:21)
[2019-07-06] MEDS: chlordiazePOXIDE 10 MG CAPSULE PO SCH ×6 (00:48→23:20)
[2019-07-06] MEDS: PIPERACILLIN/TAZOBACTAM 3,375 MG in SODIUM CHLORIDE 0.9% 100 ML IV SCH ×3 (03:31→16:48)
[2019-07-06 06:18] LABS: Basophils # 0.1 10*3/uL (0.0-0.2); Basophils % 0.7 % (0.0-0.8); Eosinophils # 0.1 10*3/uL (0.0-0.87); Eosinophils % 1.6 % (0.00-10.9); Hematocrit 37.4 VOL% (42.0-52.0); Hemoglobin 11.5 GM/DL (14.0-18.0); Immature Granulocytes % 0.7 %; Immature Granulocytes Absolute 0.05 #; Lymphocytes # 1.6 10*3/uL (1.4-4.0); Lymphocytes % 21.9 % (21.2-54.2); Mean Corpuscular HGB Conc 30.7 GM/DL (32-36); Mean Corpuscular Volume 84.6 FL (87-102); Mean Platelet Volume 10.7 FL (9.6-12.0); Monocytes % 8.9 % (1.7-12.7); Neutrophils % 66.2 % (38.7-73.9); Platelet Count 711 T/CUMM (130-400); Red Blood Count 4.42 MC/CUMM (3.8-5.5); Red Cell Distribution Width 17.8 % (9.3-17.3); White Blood Count 7.3 T/CUMM (4-12)
[2019-07-06 06:46] LABS: Albumin 2.7 G/DL (3.4-5.0); Bilirubin,Total 0.5 MG/DL (0.2-1.0); Calcium 9.2 MG/DL (8.5-10.1); Osmolality,Calculated 289.4 MOS/KG (273-304)
[2019-07-06] MEDS: DEXT 5% NACL 0.45% KCL 40 MEQ 40 MEQ/1,000 ML BAG IV SCH ×2 (09:56→23:27)
[2019-07-06] MEDS: ASPIRIN CHEW 81 MG TABLET PO SCH (09:57)
[2019-07-06] MEDS: BACLOFEN 20 MG TABLET PO SCH (09:57)
[2019-07-06] MEDS: LORazepam 2 MG/1 ML VIAL IV PRN (13:43)
[2019-07-06] MEDS: TAMSULOSIN 0.4 MG CAPSULE PO SCH (23:20)
[2019-07-07] MEDS: ALBUTEROL/IPRATROPIUM 3 ML NEB RESP TX SCH ×4 (01:10→20:23)
[2019-07-07] MEDS: PIPERACILLIN/TAZOBACTAM 3,375 MG in SODIUM CHLORIDE 0.9% 100 ML IV SCH ×3 (01:58→17:20)
[2019-07-07] MEDS: VERAPAMIL 80 MG TABLET PER TUBE SCH (02:01)
[2019-07-07] MEDS: DEXT 5% NACL 0.45% KCL 40 MEQ 40 MEQ/1,000 ML BAG IV SCH ×3 (03:30→13:45)
[2019-07-07] MEDS: QUEtiapine 25 MG TABLET PO SCH ×2 (09:37→22:45)
[2019-07-07] MEDS: levETIRAcetam 500 MG TABLET PO SCH ×3 (09:37→22:44)
[2019-07-07] MEDS: chlordiazePOXIDE 10 MG CAPSULE PO SCH ×3 (09:37→22:44)
[2019-07-07] MEDS: METOPROLOL TARTRATE 50 MG TABLET PO SCH ×2 (09:37→22:45)
[2019-07-07] MEDS: BACLOFEN 20 MG TABLET PO SCH (09:37)
[2019-07-07] MEDS: amLODIPine 5 MG TABLET PO SCH (09:37)
[2019-07-07] MEDS: ASPIRIN CHEW 81 MG TABLET PO SCH (09:37)
[2019-07-07] MEDS: TAMSULOSIN 0.4 MG CAPSULE PO SCH ×2 (09:37→22:43)
[2019-07-07] MEDS: LACTULOSE 20 GM/30 ML UDCUP PO SCH ×2 (09:38→22:43)
[2019-07-07] MEDS: GABAPENTIN 300 MG CAPSULE PO SCH ×3 (09:54→22:45)
[2019-07-07 10:32] LABS: Alanine Aminotransferase 39 U/L (16-61); Albumin 2.6 G/DL (3.4-5.0); Alkaline Phosphatase 156 U/L (45-117); Aspartate Amino Transferase 23 U/L (0-37); Bilirubin,Total < 0.39 MG/DL (0.2-1.0); Blood Urea Nitrogen 10 MG/DL (7-18); Calcium 8.9 MG/DL (8.5-10.1); Glucose 133 MG/DL (74-106); Osmolality,Calculated 292.4 MOS/KG (273-304)
[2019-07-07] MEDS: traZODone 50 MG TABLET PER TUBE SCH (22:43)
[2019-07-08] MEDS: PIPERACILLIN/TAZOBACTAM 3,375 MG in SODIUM CHLORIDE 0.9% 100 ML IV SCH ×2 (01:19→07:32)
[2019-07-08] MEDS: ALBUTEROL/IPRATROPIUM 3 ML NEB RESP TX SCH ×4 (01:26→19:44)
[2019-07-08] MEDS: LORazepam 2 MG/1 ML VIAL IV PRN (03:59)
[2019-07-08] MEDS: DEXT 5% NACL 0.45% KCL 40 MEQ 40 MEQ/1,000 ML BAG IV SCH ×2 (05:25→08:33)
[2019-07-08 05:57] LABS: Albumin 2.6 G/DL (3.4-5.0); Bilirubin,Total 0.6 MG/DL (0.2-1.0); Calcium 8.8 MG/DL (8.5-10.1); Osmolality,Calculated 293.3 MOS/KG (273-304); Total Protein 6.7 G/DL (6.4-8.3)
[2019-07-08] MEDS: amLODIPine 5 MG TABLET PO SCH ×2 (07:30→08:22)
[2019-07-08] MEDS: METOPROLOL TARTRATE 50 MG TABLET PO SCH ×3 (07:30→21:29)
[2019-07-08] MEDS: QUEtiapine 25 MG TABLET PO SCH ×2 (07:31→08:21)
[2019-07-08] MEDS: ASPIRIN CHEW 81 MG TABLET PO SCH ×2 (07:31→08:20)
[2019-07-08] MEDS: GABAPENTIN 300 MG CAPSULE PO SCH ×4 (07:31→21:30)
[2019-07-08] MEDS: TAMSULOSIN 0.4 MG CAPSULE PO SCH ×3 (07:31→21:28)
[2019-07-08] MEDS: chlordiazePOXIDE 10 MG CAPSULE PO SCH ×4 (07:31→21:29)
[2019-07-08] MEDS: levETIRAcetam 500 MG TABLET PO SCH ×4 (07:31→21:29)
[2019-07-08] MEDS: BACLOFEN 20 MG TABLET PO SCH ×2 (07:31→08:21)
[2019-07-08] MEDS: VERAPAMIL 80 MG TABLET PER TUBE SCH (07:56)
[2019-07-08] MEDS: LACTULOSE 20 GM/30 ML UDCUP PO SCH ×2 (08:21→21:29)
[2019-07-08] MEDS: DIVALPROEX ER 250 MG TABLET PO SCH ×3 (10:38→21:29)
[2019-07-08] MEDS ORDERED: ZIPRASIDONE 20 MG/1 ML VIAL IM ONE (15:20)
[2019-07-08] MEDS ORDERED: QUEtiapine 25 MG TABLET PO SCH (21:00)
[2019-07-08] MEDS: traZODone 50 MG TABLET PER TUBE SCH (21:28)
[2019-07-09] MEDS: ALBUTEROL/IPRATROPIUM 3 ML NEB RESP TX SCH ×4 (00:01→19:45)
[2019-07-09] MEDS ORDERED: QUEtiapine 25 MG TABLET PO SCH (09:00)
[2019-07-09] MEDS: levETIRAcetam 500 MG TABLET PO SCH ×3 (09:31→20:45)
[2019-07-09] MEDS: TAMSULOSIN 0.4 MG CAPSULE PO SCH ×2 (09:31→20:44)
[2019-07-09] MEDS: METOPROLOL TARTRATE 50 MG TABLET PO SCH ×2 (09:31→20:43)
[2019-07-09] MEDS: chlordiazePOXIDE 10 MG CAPSULE PO SCH ×3 (09:31→20:45)
[2019-07-09] MEDS: BACLOFEN 20 MG TABLET PO SCH (09:31)
[2019-07-09] MEDS: ASPIRIN CHEW 81 MG TABLET PO SCH (09:31)
[2019-07-09] MEDS: GABAPENTIN 300 MG CAPSULE PO SCH ×3 (09:31→20:44)
[2019-07-09] MEDS: amLODIPine 5 MG TABLET PO SCH (09:31)
[2019-07-09] MEDS: DIVALPROEX ER 250 MG TABLET PO SCH ×2 (09:31→20:44)
[2019-07-09] MEDS: LACTULOSE 20 GM/30 ML UDCUP PO SCH ×2 (09:32→20:45)
[2019-07-09] MEDS: QUEtiapine 25 MG TABLET PO SCH (20:44)
[2019-07-09] MEDS: traZODone 50 MG TABLET PER TUBE SCH (20:44)
[2019-07-10] MEDS: ALBUTEROL/IPRATROPIUM 3 ML NEB RESP TX SCH ×4 (00:10→20:35)
[2019-07-10] MEDS: chlordiazePOXIDE 10 MG CAPSULE PO SCH ×3 (08:25→21:20)
[2019-07-10] MEDS: BACLOFEN 20 MG TABLET PO SCH (08:25)
[2019-07-10] MEDS: LACTULOSE 20 GM/30 ML UDCUP PO SCH ×2 (08:25→21:18)
[2019-07-10] MEDS: QUEtiapine 25 MG TABLET PO SCH ×2 (08:25→21:21)
[2019-07-10] MEDS: TAMSULOSIN 0.4 MG CAPSULE PO SCH ×2 (08:25→21:19)
[2019-07-10] MEDS: DIVALPROEX ER 250 MG TABLET PO SCH ×2 (08:25→21:18)
[2019-07-10] MEDS: ASPIRIN CHEW 81 MG TABLET PO SCH (08:26)
[2019-07-10] MEDS: amLODIPine 5 MG TABLET PO SCH (08:26)
[2019-07-10] MEDS: GABAPENTIN 300 MG CAPSULE PO SCH ×3 (08:26→21:20)
[2019-07-10] MEDS: METOPROLOL TARTRATE 50 MG TABLET PO SCH ×2 (08:26→21:21)
[2019-07-10] MEDS: levETIRAcetam 500 MG TABLET PO SCH ×3 (08:26→21:28)
[2019-07-10] MEDS: traZODone 50 MG TABLET PO SCH (21:29)
[2019-07-11] MEDS: ALBUTEROL/IPRATROPIUM 3 ML NEB RESP TX SCH ×4 (01:43→19:13)
[2019-07-11 08:06] LABS: Basophils % 0.3 % (0.0-0.8); Eosinophils # 0.2 10*3/uL (0.0-0.87); Eosinophils % 3.1 % (0.00-10.9); Hematocrit 37.4 VOL% (42.0-52.0); Hemoglobin 11.3 GM/DL (14.0-18.0); Immature Granulocytes % 0.5 %; Immature Granulocytes Absolute 0.03 #; Lymphocytes # 1.7 10*3/uL (1.4-4.0); Lymphocytes % 28.1 % (21.2-54.2); Mean Corpuscular HGB Conc 30.2 GM/DL (32-36); Mean Corpuscular Volume 83.5 FL (87-102); Mean Platelet Volume 9.3 FL (9.6-12.0); Monocytes % 11.2 % (1.7-12.7); Neutrophils % 56.8 % (38.7-73.9); Platelet Count 634 T/CUMM (130-400); Red Blood Count 4.48 MC/CUMM (3.8-5.5); Red Cell Distribution Width 17.1 % (9.3-17.3); White Blood Count 6.1 T/CUMM (4-12)
[2019-07-11] MEDS: chlordiazePOXIDE 10 MG CAPSULE PO SCH ×3 (09:33→21:10)
[2019-07-11] MEDS: METOPROLOL TARTRATE 50 MG TABLET PO SCH ×2 (09:33→21:11)
[2019-07-11] MEDS: LACTULOSE 20 GM/30 ML UDCUP PO SCH ×2 (09:33→21:09)
[2019-07-11] MEDS: QUEtiapine 25 MG TABLET PO SCH ×2 (09:34→21:10)
[2019-07-11] MEDS: BACLOFEN 20 MG TABLET PO SCH (09:34)
[2019-07-11] MEDS: TAMSULOSIN 0.4 MG CAPSULE PO SCH ×2 (09:34→21:10)
[2019-07-11] MEDS: GABAPENTIN 300 MG CAPSULE PO SCH ×3 (09:34→21:11)
[2019-07-11] MEDS: ASPIRIN CHEW 81 MG TABLET PO SCH (09:34)
[2019-07-11] MEDS: DIVALPROEX ER 250 MG TABLET PO SCH ×2 (09:34→21:11)
[2019-07-11] MEDS: levETIRAcetam 500 MG TABLET PO SCH ×3 (09:34→21:10)
[2019-07-11] MEDS: amLODIPine 5 MG TABLET PO SCH (09:34)
[2019-07-11] MEDS: ENOXAPARIN 40 MG/0.4 ML SYRINGE SUBCUT SCH (11:06)
[2019-07-11] MEDS: traZODone 50 MG TABLET PO SCH (21:10)
[2019-07-12] MEDS: ALBUTEROL/IPRATROPIUM 3 ML NEB RESP TX SCH ×4 (00:41→18:40)
[2019-07-12] MEDS: DIVALPROEX ER 250 MG TABLET PO SCH ×2 (09:05→20:52)
[2019-07-12] MEDS: GABAPENTIN 300 MG CAPSULE PO SCH ×3 (09:05→20:52)
[2019-07-12] MEDS: amLODIPine 5 MG TABLET PO SCH (09:05)
[2019-07-12] MEDS: QUEtiapine 25 MG TABLET PO SCH ×2 (09:05→20:52)
[2019-07-12] MEDS: BACLOFEN 20 MG TABLET PO SCH (09:05)
[2019-07-12] MEDS: chlordiazePOXIDE 10 MG CAPSULE PO SCH ×3 (09:05→20:51)
[2019-07-12] MEDS: levETIRAcetam 500 MG TABLET PO SCH ×3 (09:05→20:52)
[2019-07-12] MEDS: METOPROLOL TARTRATE 50 MG TABLET PO SCH ×2 (09:05→20:51)
[2019-07-12] MEDS: TAMSULOSIN 0.4 MG CAPSULE PO SCH ×2 (09:05→20:52)
[2019-07-12] MEDS: ENOXAPARIN 40 MG/0.4 ML SYRINGE SUBCUT SCH (09:06)
[2019-07-12] MEDS: LACTULOSE 20 GM/30 ML UDCUP PO SCH ×2 (09:06→20:51)
[2019-07-12] MEDS: ASPIRIN CHEW 81 MG TABLET PO SCH (09:06)
[2019-07-12] MEDS: traZODone 50 MG TABLET PO SCH (20:52)
[2019-07-12] MEDS: LORazepam 2 MG/1 ML VIAL IM PRN (23:21)
[2019-07-13] MEDS: ALBUTEROL/IPRATROPIUM 3 ML NEB RESP TX SCH ×4 (01:23→20:29)
[2019-07-13] MEDS: LORazepam 2 MG/1 ML VIAL IM PRN ×4 (06:25→20:08)
[2019-07-13] MEDS: LACTULOSE 20 GM/30 ML UDCUP PO SCH ×2 (08:05→20:09)
[2019-07-13] MEDS: ASPIRIN CHEW 81 MG TABLET PO SCH (08:05)
[2019-07-13] MEDS: DIVALPROEX ER 250 MG TABLET PO SCH ×2 (08:06→20:06)
[2019-07-13] MEDS: BACLOFEN 20 MG TABLET PO SCH (08:06)
[2019-07-13] MEDS: chlordiazePOXIDE 10 MG CAPSULE PO SCH ×3 (08:06→20:07)
[2019-07-13] MEDS: levETIRAcetam 500 MG TABLET PO SCH ×3 (08:06→20:07)
[2019-07-13] MEDS: METOPROLOL TARTRATE 50 MG TABLET PO SCH ×2 (08:07→20:10)
[2019-07-13] MEDS: GABAPENTIN 300 MG CAPSULE PO SCH ×3 (08:07→20:08)
[2019-07-13] MEDS: QUEtiapine 25 MG TABLET PO SCH ×2 (08:07→20:07)
[2019-07-13] MEDS: amLODIPine 5 MG TABLET PO SCH (08:07)
[2019-07-13] MEDS: TAMSULOSIN 0.4 MG CAPSULE PO SCH ×2 (08:07→20:07)
[2019-07-13] MEDS: ENOXAPARIN 40 MG/0.4 ML SYRINGE SUBCUT SCH (10:21)
[2019-07-13] MEDS: traZODone 50 MG TABLET PO SCH (20:06)
[2019-07-14] MEDS: LORazepam 2 MG/1 ML VIAL IM PRN ×3 (00:09→12:33)
[2019-07-14] MEDS: ALBUTEROL/IPRATROPIUM 3 ML NEB RESP TX SCH ×4 (00:29→19:15)
[2019-07-14 04:53] LABS: Calcium 9.1 MG/DL (8.5-10.1); Osmolality,Calculated 290.4 MOS/KG (273-304)
[2019-07-14] MEDS ORDERED: QUEtiapine 25 MG TABLET PO ONE (09:30)
[2019-07-14] MEDS: QUEtiapine 25 MG TABLET PO SCH ×2 (09:49→21:01)
[2019-07-14] MEDS: LACTULOSE 20 GM/30 ML UDCUP PO SCH ×2 (09:49→21:00)
[2019-07-14] MEDS: DIVALPROEX ER 250 MG TABLET PO SCH ×2 (09:50→21:01)
[2019-07-14] MEDS: ASPIRIN CHEW 81 MG TABLET PO SCH (09:50)
[2019-07-14] MEDS: levETIRAcetam 500 MG TABLET PO SCH ×3 (09:50→21:58)
[2019-07-14] MEDS: chlordiazePOXIDE 10 MG CAPSULE PO SCH ×3 (09:50→21:01)
[2019-07-14] MEDS: BACLOFEN 20 MG TABLET PO SCH (09:50)
[2019-07-14] MEDS: TAMSULOSIN 0.4 MG CAPSULE PO SCH ×2 (09:50→21:00)
[2019-07-14] MEDS: METOPROLOL TARTRATE 50 MG TABLET PO SCH ×2 (09:50→21:58)
[2019-07-14] MEDS: POTASSIUM CHLORIDE 20 MEQ TABLET PO PRN ×3 (09:50→16:38)
[2019-07-14] MEDS: amLODIPine 5 MG TABLET PO SCH (09:51)
[2019-07-14] MEDS: GABAPENTIN 300 MG CAPSULE PO SCH ×3 (09:51→21:01)
[2019-07-14] MEDS: ENOXAPARIN 40 MG/0.4 ML SYRINGE SUBCUT SCH (09:52)
[2019-07-14 12:17] LABS: Calcium 9.2 MG/DL (8.5-10.1); Osmolality,Calculated 290.6 MOS/KG (273-304)
[2019-07-14] MEDS: traZODone 50 MG TABLET PO SCH (21:00)
[2019-07-15] MEDS: ALBUTEROL/IPRATROPIUM 3 ML NEB RESP TX SCH ×3 (01:30→13:50)
[2019-07-15 05:03] LABS: Basophils % 0.3 % (0.0-0.8); Eosinophils % 0.1 % (0.00-10.9); Hematocrit 37.3 VOL% (42.0-52.0); Hemoglobin 11.3 GM/DL (14.0-18.0); Immature Granulocytes % 0.6 %; Immature Granulocytes Absolute 0.08 #; Lymphocytes # 1.5 10*3/uL (1.4-4.0); Lymphocytes % 10.8 % (21.2-54.2); Mean Corpuscular HGB Conc 30.3 GM/DL (32-36); Mean Corpuscular Volume 86.3 FL (87-102); Mean Platelet Volume 10.5 FL (9.6-12.0); Monocytes % 7.6 % (1.7-12.7); Neutrophils % 80.6 % (38.7-73.9); Platelet Count 558 T/CUMM (130-400); Red Blood Count 4.32 MC/CUMM (3.8-5.5); Red Cell Distribution Width 17.1 % (9.3-17.3)
[2019-07-15] MEDS ORDERED: FINASTERIDE 5 MG TABLET PO SCH (09:00)
[2019-07-15] MEDS ORDERED: chlordiazePOXIDE 10 MG CAPSULE PO SCH (09:15)
[2019-07-15] MEDS ORDERED: DIVALPROEX ER 500 MG TABLET PO SCH (09:15)
[2019-07-15] MEDS: TAMSULOSIN 0.4 MG CAPSULE PO SCH (10:25)
[2019-07-15] MEDS: levETIRAcetam 500 MG TABLET PO SCH ×2 (10:25→15:49)
[2019-07-15] MEDS: METOPROLOL TARTRATE 50 MG TABLET PO SCH (10:25)
[2019-07-15] MEDS: LACTULOSE 20 GM/30 ML UDCUP PO SCH (10:25)
[2019-07-15] MEDS: ASPIRIN CHEW 81 MG TABLET PO SCH (10:25)
[2019-07-15] MEDS: ENOXAPARIN 40 MG/0.4 ML SYRINGE SUBCUT SCH (10:26)
[2019-07-15] MEDS: QUEtiapine 25 MG TABLET PO SCH (10:26)
[2019-07-15] MEDS: GABAPENTIN 300 MG CAPSULE PO SCH ×2 (10:26→15:49)
[2019-07-15] MEDS: amLODIPine 5 MG TABLET PO SCH (10:26)
[2019-07-15] MEDS: BACLOFEN 20 MG TABLET PO SCH (11:05)
[2019-07-15] MEDS: DIVALPROEX ER 250 MG TABLET PO SCH (11:05)
[2019-07-15] MEDS: chlordiazePOXIDE 10 MG CAPSULE PO SCH (11:05)
[2019-07-15 17:12] VITALS: BP 102/60
[2019-07-15] MEDS ORDERED: traZODone 50 MG TABLET PO SCH (21:00)
== END 2019-07-15 18:16 | disposition home or self-care (01) | DRG 917 ==
LOC: EDUNIT# → EDBD → N.ED 09:44 → N.EDINP 11:24 → SUATTDRO 11:24 → N.CC 11:54 → N.5E 06-25 16:53
PROVIDERS: ADMIT Internal Medicine; ATTEND Internal Medicine